=== PATIENT | male | born 1985 | race Caucasian/White ===

== ENCOUNTER 2020-03-24 10:05 | Emergency (ER) | payer OTHER, SELFPAY ==
[2020-03-24 10:12] VITALS: BP 119/72; PULSE 76; RESP 14; TEMP 36.8; O2SAT 98
--- NOTE | 2020-03-24 10:20 | ED.EYEPROB ---
HPI - Eye Problem General Chief complaint: Eye Problems Stated complaint: left eye swollen/red/blurred vision Time Seen by Provider: 03/24/20 10:20 Source: patient and RN notes reviewed Mode of arrival: ambulatory Limitations: no limitations History of Present Illness HPI Narrative: 34 year old male who presents to [facility] care with complaints of left eye feeling irritated, dry, soreness to lateral corner of his left eye since yesterday evening. Patient states that he was in the [place] yesterday [place] and is not sure if he got something in his eye or if he got exposed to something in the wood. Patient states that he has some blurring of his vision at times denies any acute pain. Patient states that his left upper eyelid is swollen and red, denies excessive tearing, states did have some drainage from his eye this morning. MD chief complaint: eye pain and vision change Onset (ago): day(s) (1) Onset description: sudden Duration: progressively worsening Location: left eye Eye Symptoms: burning, redness, itching, discharge (whitish) and blurry vision (at times) Place: street/outdoors Severity: mild Severity scale (1-10): 3 If Pain, Quality: aching Context: other (unsure mechanism) Associated symptoms: none Treatments Prior to Arrival: none Related Data Allergies Allergy/AdvReac Type Severity Reaction Status Date / Time No Known Allergies Allergy Mild Verified 03/24/20 10:21 Review of Systems Review of Systems: Narrative: CONSTITUTIONAL: Denies fever, chills, or sweats. EYES: Positive for some blurring of vision, redness, or discharge from left eye. ENT: Denies rhinorrhea, congestion, sore throat, or otalgia. CARDIOVASCULAR: Denies chest pain, palpitations, or edema. RESPIRATORY: Denies cough or dyspnea. GASTROINTESTINAL: Denies abdominal pain, nausea, vomiting, or diarrhea. GENITOURINARY: Denies dysuria or hematuria. SKIN: Denies rash or itching. MUSCULOSKELETAL: Denies back pain, joint pain, or myalgia. NEUROLOGIC: Denies headache, numbness, or weakness. PSYCHIATRIC: Denies anxiety or depression. All systems reviewed & are unremarkable except as noted in HPI and below PMFSH Past Medical History Medical History (Updated 03/25/20 @ 08:51 by Genny Lowery NP) Concussion Pneumonia Surgical History Surgical History (Updated 03/25/20 @ 10:01 by Genny Lowery NP) No significant past surgical history Social History Social History (Updated 03/25/20 @ 09:55 by Genny Lowery NP) Smoking status: Former smoker Tobacco type: smokeless tobacco Living arrangements: with family Gender identity (if verbalized by the patient): Male Comments At time of signature, agree with nursing past medical, surgical, social history. There is no relevant family history pertinent to the presenting complaint Exam Narrative: Exam Narrative: GENERAL: Well-appearing, well-nourished, and in no acute distress. HEAD: Normocephalic, atraumatic. EYES: PERRLA and EOMI,left eye sclera reddened with some swelling to left upper eyelid, no excessive tearing noted, denies sharp pain. No drainage noted but stated matting this morning noted, no nystagmus noted on examination or visual foreign body. ENT: Nares clear, no rhinorrhea or epistaxis. Mucous membranes moist. NECK: Supple.no lymphadenopathy CHEST: Clear to auscultation. No respiratory distress.SAO2 98% on room air. HEART: Regular rate and rhythm. No murmur heard. Normal peripheral pulses. ABDOMEN: Soft, nontender, nondistended, normal active bowel sounds. EXTREMITIES: Normal range of motion. No edema. SKIN: Warm, dry, no rash. NEURO: No focal deficits. Alert and oriented x3. Course Vital Signs Vital signs: Vital Signs Temperature 36.8 C 03/24/20 10:12 Pulse Rate 76 03/24/20 10:12 Respiratory Rate 14 03/24/20 10:12 Blood Pressure 119/72 03/24/20 10:12 Pulse Oximetry 98 03/24/20 10:12 Temperature 36.8 C 03/24/20 10:12 Pulse Rate 76 03/24/20 10:12 Res
== END 2020-03-24 11:02 | disposition home or self-care (01) ==
PROVIDERS: Emergency Provider Registered Nurse; PCP Physician Assistant
DX: S05.02XA Injury of conjunctiva and corneal abrasion without foreign body, left eye, initial encounter (principal); X58.XXXA Exposure to other specified factors, initial encounter
CPT/HCPCS: 99213; A9270; G0463

== ENCOUNTER 2020-08-10 14:38 | Emergency (ER) | payer OTHER, SELFPAY ==
[2020-08-10 14:59] VITALS: BP 133/88; PULSE 82; RESP 16; TEMP 36.7; O2SAT 97
[2020-08-10 15:25] LABS: Basophils Absolute Auto 0.04 K/mm3 (0.00-0.10); Basophils Percent Auto 0.5 % (0.0-1.0); Eosinophils Absolute Auto 0.07 K/mm3 (0.02-0.50); Eosinophils Percent Auto 0.9 % (1.0-6.0); Hematocrit 44.4 % (40.0-54.0); Hemoglobin 15.7 g/dL (14.0-18.0); Immature Granulocyte Absolute 0.06 K/mm3 (0.00-0.00); Immature Granulocyte Percent A 0.8 % (0.0-0.0); Lymphocytes Absolute Auto 0.93 K/mm3 (1.10-4.50); Mean Corpuscular HGB Conc 35.4 g/dL (32.0-36.0); Mean Corpuscular Hemoglobin 29.3 pg (27.0-31.0); Mean Corpuscular Volume 82.8 fL (78.0-102.0); Mean Platelet Volume 10.7 fl (8.7-11.0); Monocytes Absolute Auto 0.48 K/mm3 (0.10-0.90); Monocytes Percent Auto 6.2 % (2.0-11.0); Neutrophils Absolute Auto 6.2 K/mm3 (1.7-7.2); Neutrophils Percent Auto 79.6 % (50.0-70.0); Platelet Count Result 201 K/mm3 (150-420); Red Blood Count 5.36 M/mm3 (4.70-6.10); Red Cell Distribution Width 12.5 % (11.6-14.4); White Blood Count 7.7 K/mm3 (4.8-10.8)
[2020-08-10] MEDS: ONDANSETRON HCL ODT 4 MG TABLET PO (15:25)
[2020-08-10 15:43] LABS: SARS-CoV-2 Ag Negative (Negative)
--- NOTE | 2020-08-10 15:46 | ED.GENADULT ---
HPI - General Adult General Chief complaint: Dental/Oral Stated complaint: sent by doctor for infection/nausea/sore throat History of Present Illness HPI narrative: this is a 35-year-old gentleman that presents to the emergency department after he spoke with his PA earlier today and was advised to present to the emergency room because of sore throat and cough and has been feeling some weakness with no shortness of breath no fever chills no chest pain no abdominal pain, has been having some nausea and no diarrhea or constipation. The patient recently was treated for sinus infection by his PA, and also has seen his dentist and had a tooth extraction for which she was placed on pain medication. Called his PA earlier today and was advised to present to the ER to have workup that included making sure he did have an overt infection. Onset (ago): day(s) Location: mouth Radiation: non-radiation Severity: moderate Severity scale (1-10): 6 Quality: aching Pain Consistency: intermittent Relieving factors: none Exacerbating factors: none Associated symptoms: nausea/vomiting and weakness Related Data Home Medications Medication Instructions Recorded Confirmed amoxicillin 500 mg PO Q6H 08/10/20 08/10/20 cephalexin 500 mg PO Q8H 08/10/20 08/10/20 hydrocodone-acetaminophen 1 tablet PO Q4-6H PRN 08/10/20 08/10/20 Allergies Allergy/AdvReac Type Severity Reaction Status Date / Time No Known Allergies Allergy Mild Verified 03/24/20 10:21 Review of Systems Review of Systems: All systems reviewed & are unremarkable except as noted in HPI and below PMFSH Past Medical History Medical History Concussion Pneumonia Surgical History Surgical History No significant past surgical history Social History Social History Smoking status: Former smoker Tobacco type: smokeless tobacco Gender identity (if verbalized by the patient): Male Exam Const: General: no acute distress and alert Orientation/consciousness: patient oriented x3 HENMT: Head: normal to inspection Other: Oropharynx with erythema Eyes: Conjunctivae: conjunctivae normal Pupils: Equal, round and reactive pupils present Neck: Neck: normal visual inspection Chest: Chest palpation & inspection: normal inspection of the chest Resp: Effort & Inspection: normal respiratory effort Auscultation: clear to auscultation bilaterally Cardio: Rate: regular rate Rhythm: regular rhythm GI: GI Palp: Yes Soft to palpation Back/Spine/Pelvis: Back: no CVA tenderness Skin: General skin exam: normal color Rashes: no rashes Neuro: General: patient oriented x3, moves all extremities, no meningeal signs and no focal motor deficits Extrem: General: normal to inspection Psych: Appearance: grossly normal Mental Status: mental status grossly normal Affect: normal affect Course Course Emergency Course: patient doing well was given p.o. Zofran and reviewed the results with patient. Vital Signs Vital signs: Vital Signs Temperature 36.7 C 08/10/20 14:59 Pulse Rate 82 08/10/20 14:59 Respiratory Rate 16 08/10/20 14:59 Blood Pressure 133/88 08/10/20 14:59 Pulse Oximetry 97 08/10/20 14:59 Temperature 36.7 C 08/10/20 14:59 Pulse Rate 82 08/10/20 14:59 Respiratory Rate 16 08/10/20 14:59 Blood Pressure 133/88 08/10/20 14:59 Pulse Oximetry 97 08/10/20 14:59 Medical Decision Making Vital Signs Vital Signs: Vital Signs Temperature 36.7 C 08/10/20 14:59 Pulse Rate 82 08/10/20 14:59 Respiratory Rate 16 08/10/20 14:59 Blood Pressure 133/88 08/10/20 14:59 Pulse Oximetry 97 08/10/20 14:59 Temperature 36.7 C 08/10/20 14:59 Pulse Rate 82 08/10/20 14:59 Respiratory Rate 16 08/10/20 14:59 Blood Pressure 133/88 08/10/20 14:59 Pulse Oximetry 97
== END 2020-08-10 15:55 | disposition home or self-care (01) ==
PROVIDERS: Emergency Provider Emergency Medicine; PCP Physician Assistant
DX: B34.9 Viral infection, unspecified (principal); R11.0 Nausea; Z20.822 Contact with and (suspected) exposure to COVID-19
CPT/HCPCS: 85025; 87040; 87081; 87426; 87880; 99283; A9270; C9803

== ENCOUNTER 2020-10-30 15:46 | Outpatient (CLI) | payer OTHER, SELFPAY ==
[2020-10-30 16:34] LABS: SARS-CoV-2 RNA PCR Positive (Negative)
== END 2020-10-30 15:47 | disposition home or self-care (01) ==
LOC: CHSLAB 15:47
PROVIDERS: PCP Physician Assistant; Visit Provider Physician Assistant
DX: U07.1 COVID-19 (principal)
CPT/HCPCS: C9803; U0003; U0005

== ENCOUNTER 2021-06-29 09:31 | Emergency (ER) | payer OTHER, SELFPAY ==
--- NOTE | ~2021-06-29 | XR_ITS ---
EXAMINATION: XR chest 1V portable DATE: 06/29/2021 10:01 INDICATION: Midsternal and left-sided chest pain with bilateral arm tingling. TECHNIQUE: frontal view of the chest was obtained. COMPARISON: Chest radiograph dated 02/15/2011 FINDINGS: The lungs are clear with no focal airspace opacities, pulmonary edema, pleural effusion or pneumothor ax. The cardiomediastinal silhouette is normal. Mild thoracic dextrocurvature. IMPRESSION: 1. No acute cardiopulmonary disease. Reviewed, dictated and finalized at location [facility]. [facility]
--- NOTE | 2021-06-29 09:45 | ECG_ITS ---
Measurements Intervals [place] Rate: 60 P: 58 [place]: 134 QRS: 13 QRSD: 104 T: -30 QT: 383 QTc: 385 Interpretive Statements SINUS RHYTHM BORDERLINE R WAVE PROGRESSION, ANTERIOR LEADS ST-T WAVE ABNORMALITY IN INFERIOR LEADS- CONSIDER ISCHEMIA BASELINE ARTIFACT- V4-V6 ABNORMAL ECG Electronically Signed On 06-29-2021 10:19:28 VIDEO PRESENTATION OPERATOR by Navjot Kessler D.O.
[2021-06-29 09:46] VITALS: BP 116/79; PULSE 71; RESP 16; TEMP 36.2; O2SAT 98
[2021-06-29 09:49] VITALS: PULSE 71
[2021-06-29 10:24] LABS: Basophils Absolute Auto 0.04 K/mm3 (0.00-0.10); Basophils Percent Auto 0.7 % (0.0-1.0); Eosinophils Absolute Auto 0.09 K/mm3 (0.02-0.50); Eosinophils Percent Auto 1.6 % (1.0-6.0); Hematocrit 49.5 % (40.0-54.0); Hemoglobin 17.3 g/dL (14.0-18.0); Immature Granulocyte Absolute 0.04 K/mm3 (0.00-0.00); Immature Granulocyte Percent A 0.7 % (0.0-0.0); Lymphocytes Absolute Auto 1.24 K/mm3 (1.10-4.50); Lymphocytes Percent Auto 21.5 % (18.0-42.0); Mean Corpuscular HGB Conc 34.9 g/dL (32.0-36.0); Mean Corpuscular Hemoglobin 29.1 pg (27.0-31.0); Mean Corpuscular Volume 83.2 fL (78.0-102.0); Mean Platelet Volume 11.2 fl (8.7-11.0); Monocytes Absolute Auto 0.46 K/mm3 (0.10-0.90); Neutrophils Absolute Auto 3.9 K/mm3 (1.7-7.2); Neutrophils Percent Auto 67.5 % (50.0-70.0); Platelet Count Result 240 K/mm3 (150-420); Red Blood Count 5.95 M/mm3 (4.70-6.10); Red Cell Distribution Width 12.3 % (11.6-14.4); White Blood Count 5.8 K/mm3 (4.8-10.8)
[2021-06-29 10:36] LABS: D Dimer 0.19 mg/L (0.19-0.50)
[2021-06-29 10:41] LABS: Alanine Aminotransferase 50 U/L (16-63); Alkaline Phosphatase 69 U/L (46-116); Anion Gap 10 mmol/L (8-16); Aspartate Amino Transferase 18 U/L (15-37); Bilirubin,Total 1.9 mg/dL (0.00-1.00); Blood Urea Nitrogen 14 mg/dL (7-18); Carbon Dioxide 27 mmol/L (21-32); Chloride 103 mmol/L (98-108); Estimated CRCL calculation 89 ml/min; Estimated Glomerular Filt Rate > 60; Glucose 117 mg/dL (70-99); Osmolality Calculated 291 mOsm/kg (285-295); Potassium 4.2 mmol/L (3.5-5.1); Sodium 140 mmol/L (136-145); Total Protein 7.4 g/dL (6.4-8.2)
[2021-06-29 10:44] LABS: SARS-CoV-2 Ag Negative (Negative)
--- NOTE | 2021-06-29 11:00 | ED.CHESTPAIN ---
HPI - Chest Pain General Chief Complaint: Chest Pain Stated Complaint: dizzy, left arm asleep Source: patient Mode of arrival: ambulatory Limitations: no limitations History of Present Illness HPI narrative: Pt presents with3 day hx of chest pain. He said it feels like his indigestion. He has also had an ache in his left arm. Today pt was getting up and noted he felt dizzy and thought he was going to vomit. MD complaint: chest discomfort Onset (ago): day(s) Timing of current episode: constant Onset: during rest Pain location: substernal Pain radiation: left arm Severity: mild Quality: tightness and heaviness Relieving factors: nothing Exacerbating factors: nothing Associated symptoms: nausea Treatment prior to arrival: none Risk Factors Coronary artery disease risk factors: none Thoracic aortic dissection risk factors: none Related Data Home Medications Medication Instructions Recorded Confirmed cephalexin 500 mg PO DAILY 06/29/21 06/29/21 omeprazole 20 mg PO DAILY 06/29/21 06/29/21 Allergies Allergy/AdvReac Type Severity Reaction Status Date / Time No Known Allergies Allergy Mild Verified 06/29/21 09:57 Review of Systems Constitutional: Constitutional: Reports no additional constitutional complaints Eyes: Eyes: Reports no additional eye complaints ENT: Reports sore throat (scratchy throat) Cardiovascular: Cardiovascular: Reports chest pain (more of a tightness like his indigestion) Respiratory: Respiratory: Reports no additional respiratory complaints Gastrointestinal: Gastrointestinal: Denies abdominal pain, Denies bloating, Denies constipation, Reports heartburn, Denies diarrhea, Reports nausea (this am after he got dizzy) and Denies vomiting Genitourinary: Genitourinary: Reports no additional male genitourinary complaints Musculoskeletal: Musculoskeletal: Reports no additional musculoskeletal complaints Integumentary/Breasts: Skin/Breast: Reports system reviewed and no additional complaints, except as docu Neurologic: Denies confusion, Denies vertigo, Reports dizziness, Denies syncope, Denies headache(s), Denies focal weakness, Denies numbness and Denies weakness Psychiatric: Psychiatric: Reports no additional psychiatric complaints Hematologic/Lymphatic: Hematologic/Lymphatic: Reports no additional hematologic/lymphatic complaints PMFSH Past Medical History Medical History Concussion Pneumonia Surgical History Surgical History No significant past surgical history Social History Social History Smoking status: Former smoker Tobacco type: smokeless tobacco Gender identity (if verbalized by the patient): Male Exam Const: General: healthy appearing, no acute distress and alert Nutritional Appearance: well nourished Orientation/consciousness: patient oriented x3 HENMT: Head: normal to inspection Eyes: Conjunctivae: conjunctivae normal Pupils: Equal, round and reactive pupils present Neck: Neck: normal visual inspection Chest: Chest palpation & inspection: normal inspection of the chest Resp: Effort & Inspection: normal respiratory effort Auscultation: clear to auscultation bilaterally Cardio: Rate: regular rate Rhythm: regular rhythm GI: GI Palp: Yes Soft to palpation, No Tenderness to palpation present (GI), No Guarding due to palpation present (GI) and No Palpable mass present Auscultation: normal bowel sounds Back/Spine/Pelvis: Back: no CVA tenderness Skin: General skin exam: normal color Rashes: no rashes Neuro: General: patient oriented x3 and moves all extremities Extrem: General: normal to inspection, no pedal edema and no edema Psych: Appearance: grossly normal Mental Status: mental status grossly normal Thought content: Yes Normal thought content present Course Course [facility]
[2021-06-29 11:09] VITALS: BP 105/64
[2021-06-29 11:10] VITALS: BP 101/64; BP 113/74
[2021-06-29 14:36] LABS: Troponin I 6.1 ng/L (0.00-60.4)
[2021-06-29 15:12] VITALS: BP 122/86; PULSE 62; RESP 16; TEMP 36.3; O2SAT 97
== END 2021-06-29 15:13 | disposition home or self-care (01) ==
PROVIDERS: Emergency Provider Emergency Medicine; PCP Physician Assistant
DX: R07.89 Other chest pain (principal); Z20.822 Contact with and (suspected) exposure to COVID-19
CPT/HCPCS: 36415; 71045; 80053; 84484; 85025; 85380; 87426; 93005; 99283; 99284; C9803

== ENCOUNTER 2022-07-17 11:40 | Emergency (ER) | payer OTHER, SELFPAY ==
--- NOTE | ~2022-07-17 | XR_ITS ---
Clinical Indication: Cough PA and lateral views of the chest: Comparison: 06/29/2021 Findings: The lungs are clear, without evidence of focal consolidation or pleural effusion. Cardiome diastinal silhouette is within normal limits. Bones and soft tissues are unremarkable. Impression: Normal chest. Reviewed, dictated and finalized at location . NDED FUNCTION DENTAL ASSISTANT Impression: Normal chest.
[2022-07-17 11:46] VITALS: BP 145/68; PULSE 85; RESP 20; TEMP 36.9; O2SAT 100
--- NOTE | 2022-07-17 12:14 | ED.URI ---
HPI - URI/Sore Throat General Chief Complaint: Upper Respiratory Infection Stated Complaint: Chest Congestion/Cough Time Seen by Provider: 07/17/22 12:00 Source: patient and RN notes reviewed History of Present Illness HPI Narrative: Patient is a 37-year-old male who presents to the Urgent Care with complaints of persistent productive cough for 1 week. Patient states he was sick 2 weeks ago and placed on Augmentin for strep throat. Patient states as of 2 days ago he was placed on amoxicillin by his primary care doctor. Patient is reporting chest congestion and cough without fever, shortness of breath, nausea or vomiting. Patient states his main concern is possible pneumonia which he had a couple years ago. No other acute complaints. No acute distress noted. Patient aware of plan of care. Some parts of this dictation were generated by voice recognition software and may contain typographical and/or grammatical inaccuracies. Related Data Home Medications Medication Instructions Recorded Confirmed amoxicillin 875 mg tablet See Rx Instructions .Route .COMPLEX 07/17/22 07/17/22 Allergies Allergy/AdvReac Type Severity Reaction Status Date / Time No Known Allergies Allergy Mild Verified 07/17/22 11:46 Review of Systems Review of Systems: CONSTITUTIONAL: Denies fever, chills, or sweats. EYES: Denies visual changes, redness, or discharge. ENT: Denies rhinorrhea, congestion, sore throat, or otalgia. CARDIOVASCULAR: Denies chest pain, palpitations, or edema. RESPIRATORY: Reports a productive cough with chest congestion, without dyspnea GASTROINTESTINAL: Denies abdominal pain, nausea, vomiting, or diarrhea. GENITOURINARY: Denies dysuria or hematuria. SKIN: Denies rash or itching. MUSCULOSKELETAL: Denies back pain, joint pain, or myalgia. NEUROLOGIC: Denies headache, numbness, or weakness. All other systems reviewed are negative, except as documented in HPI. [facility] Past Medical History Medical History Concussion Pneumonia Surgical History Surgical History No significant past surgical history Social History Social History Smoking status: Former smoker Tobacco type: smokeless tobacco Living arrangements: with family Gender identity (if verbalized by the patient): Male Comments At the time of my signature, I reviewed and agree with the nursing past medical, surgical, social, and family history. There is no relevant family history pertinent to the patient complaint. Exam Narrative: GENERAL: This is a well-nourished, well-developed patient, in no apparent distress. HEAD: normocephalic, atraumatic. EYES: PERRL. Sclera clear/white. Vision is grossly intact. EARS: External ears normal, auditory canals clear and without drainage, TMs normal without perforation. Hearing grossly intact. NOSE: External nose normal with no obvious nasal discharge, nares without redness, no rhinorrhea. THROAT: Mucous membranes moist, posterior pharynx clear. Moderate postnasal drainage NECK: Neck supple, CARDIOVASCULAR: Regular rate and rhythm RESPIRATORY: Clear to auscultation. Breath sounds equal bilaterally. No wheezes, rales, or rhonchi. SKIN: warm, intact with no suspicious lesions or rash, good texture and turgor. NEURO: awake, alert, and oriented to person, place and time. There were no obvious focal neurologic abnormalities. EXTREMITIES: No clubbing, cyanosis, or edema. Course Course Level of Care: Express Care Visit Vital Signs Vital signs: Vital Signs Temperature 98.4 F 07/17/22 11:46 Pulse Rate 85 07/17/22 11:46 Respiratory Rate 20 07/17/22 11:46 Blood Pressure 145/68 H 07/17/22 11:46 Pulse Oximetry 100 07/17/22 11:46 Oxygen Delivery Room Air 07/17/22 11:46 Temperature 98.4 F 07/17/22 11:46 Pulse Rate 85 07/17/22 11:46
== END 2022-07-17 13:00 | disposition home or self-care (01) ==
PROVIDERS: Emergency Provider Nurse Practitioner Family; PCP Physician Assistant
DX: J40 Bronchitis, not specified as acute or chronic (principal); Z87.891 Personal history of nicotine dependence
CPT/HCPCS: 71046; 99213; G0463

== ENCOUNTER 2023-12-28 14:27 | Emergency (ER) | payer OTHER, SELFPAY ==
[2023-12-28 14:33] VITALS: BP 128/83; PULSE 83; RESP 16; TEMP 36.8; O2SAT 98
--- NOTE | 2023-12-28 14:45 | ECG_ITS ---
Test Date: 2023-12-28 14:47:56 Measurements Intervals [place] Rate: 60 P: 62 [place]: 125 QRS: -23 QRSD: 96 T: -30 QT: 393 QTc: 393 Interpretive Statements SINUS RHYTHM T WAVE ABNORMALITY IN INFERIOR LEADS- CONSIDER ISCHEMIA BASELINE ARTIFACT- I, III ABNORMAL ECG No previous ECG available for comparison Electronically Signed On 12-28-2023 14:59:53 CDT by Navjot Kessler D.O.
--- NOTE | 2023-12-28 15:00 | ED.CHESTPAIN ---
HPI - Chest Pain General Chief Complaint: Chest Pain Stated Complaint: Chest Pain Time Seen by Provider: 12/28/23 14:33 Source: patient, RN notes reviewed and old records reviewed Mode of arrival: ambulatory Limitations: no limitations History of Present Illness HPI narrative: 38 year old male who presents to [facility] who states he awoke this morning with tightness over his left pectoral area which has continued throughout the day.Patient states that he has some inner left arm numbness no pain. Patient denies any nausea or vomiting or shortness of breath. Patient works as a [employer] denies any heavy lifting recently which could of caused any strain to chest area.Patient reports that he does not smoke, drinks occasional beer uses no illicit drugs. Patient reports that father has history of irregular heart beat. MD complaint: other (chest tightness) Pertinent past history: other (gerd) Onset (ago): hour(s) (this morning on awakening has contined all day) Onset: awoke with symptoms Pain location: left chest and other (reports some left inner arm numbness denies pain to left arm) Quality: tightness Treatment prior to arrival: none Related Data Home Medications Medication Instructions Recorded Confirmed sulfamethoxazole 800 tablet 12/28/23 mg-trimethoprim 160 mg tablet Allergies Allergy/AdvReac Type Severity Reaction Status Date / Time No Known Allergies Allergy Mild Verified 12/28/23 14:32 Review of Systems Review of Systems: CONSTITUTIONAL: Denies fever, chills, or sweats. EYES: Denies visual changes, redness, or discharge. ENT: Denies rhinorrhea, congestion, sore throat, or otalgia. CARDIOVASCULAR: Reports chest tightness,no palpitations, no edema. RESPIRATORY: Denies cough or dyspnea. GASTROINTESTINAL: Denies abdominal pain, nausea, vomiting, or diarrhea. GENITOURINARY: Denies dysuria or hematuria. SKIN: Denies rash or itching. MUSCULOSKELETAL: Denies back pain, joint pain, or myalgia. NEUROLOGIC: Denies headache, numbness, or weakness. PSYCHIATRIC: Denies anxiety or depression. All systems reviewed & are unremarkable except as noted in HPI and below PMFSH Past Medical History Medical History Concussion Pneumonia Surgical History Surgical History No significant past surgical history Social History Social History Smoking status: Former smoker Tobacco type: smokeless tobacco Alcohol intake: current Alcohol use details: social Substance use type: does not use Living arrangements: with family Gender identity (if verbalized by the patient): Male Comments At time of signature, agree with nursing past medical, surgical, social and family history. There is no relevant family history pertinent to the presenting complaint Exam Narrative: GENERAL: Well-appearing, well-nourished, and in no acute distress. HEAD: Normocephalic, atraumatic. EYES: PERRLA and EOMI. ENT: Nares clear, no rhinorrhea or epistaxis. Mucous membranes moist. NECK: Supple. no lymphadenopathy CHEST: Clear to auscultation. No respiratory distress.SO2 98% on room air HEART: Regular rate and rhythm. No murmur heard. Normal peripheral pulse with no edema..Reports with tightness to pectoral area of chest since awakening this morning, denies any increase with activity or any diaphoresis, nausea or any vomiting. ABDOMEN: Soft, nontender, nondistended, normal active bowel sounds. EXTREMITIES: Normal range of motion. No edema. SKIN: Warm, dry, no rash. NEURO: No focal deficits. Alert and oriented x3. Course Course Emergency Course: Patient is aware of diagnosis, understands and agrees to treatment plan.? Anticipatory guidance given.? Patient agrees to follow-up as directed and is aware of reasons to seek care at the emergency department. Po
== END 2023-12-28 15:15 | disposition short-term general hospital (02) ==
PROVIDERS: Emergency Provider Registered Nurse; PCP Physician Assistant
DX: R07.89 Other chest pain (principal); R94.31 Abnormal electrocardiogram [ECG] [EKG]
CPT/HCPCS: 93005; 99213; G0463

== ENCOUNTER 2023-12-28 16:01 | Emergency (ER) | payer OTHER, SELFPAY ==
--- NOTE | ~2023-12-28 | XR_ITS ---
EXAMINATION: XR chest 2V Exam Date/Time: 12/28/2023 16:50 CDT HISTORY: cp Comparison: 07/17/2022. RESULT: Lines, tubes, and devices: None. Lungs and pleura: Clear. Cardiomediastinal silhouette: Stable. Other: No acute osseous or upper abdominal finding. IMPRESSION: No acute cardiopulmonary process. Reviewed, dictated and finalized at location K.
--- NOTE | 2023-12-28 16:18 | ECG_ITS ---
Test Date: 2023-12-28 16:28:13 Measurements Intervals [place] Rate: 62 P: 39 GA: 139 QRS: -32 QRSD: 106 T: -29 QT: 390 QTc: 397 Interpretive Statements SINUS RHYTHM WITH SINUS ARRHYTHMIA LEFT AXIS DEVIATION BORDERLINE R WAVE PROGRESSION, ANTERIOR LEADS MINIMAL Q WAVES- HIGH LATERAL LEADS ST-T WAVE ABNORMALITY IN INFERIOR LEADS- CONSIDER ISCHEMIA ABNORMAL ECG Compared to ECG 12/28/2023 14:47:56 NO SIGNIFICANT CHANGE Electronically Signed On 12-28-2023 20:43:39 CDT by Navjot Kessler D.O.
[2023-12-28 16:25] VITALS: BP 122/87; PULSE 66; RESP 16; TEMP 36.7; O2SAT 98
[2023-12-28 16:31] VITALS: PULSE 62; O2SAT 98
[2023-12-28 16:44] LABS: Basophils Percent Auto 0.5 % (0.2-1.2); Eosinophils Absolute Auto 0.2 K/mm3 (0-0.3); Hematocrit 47.6 % (42.0-52.0); Hemoglobin 16.8 g/dL (14.0-18.0); Immature Granulocyte Absolute 0.04 K/mm3 (0.00-0.031); Immature Granulocyte Percent A 0.5 % (0-0.5); Lymphocytes Absolute Auto 1.58 K/mm3 (0.9-3.2); Lymphocytes Percent Auto 20.8 % (18.3-44.2); Mean Corpuscular HGB Conc 35.3 g/dl (32-36); Mean Corpuscular Hemoglobin 28.8 pg (26-34); Mean Corpuscular Volume 81.5 fl (80-100); Monocytes Absolute Auto 0.5 K/mm3 (0.1-0.6); Monocytes Percent Auto 6.3 % (2.6-8.5); Neutrophils Absolute Auto 5.3 K/mm3 (1.3-6.7); Neutrophils Percent Auto 69.9 % (45.5-73.1); Platelet Count Result 232 k/mm3 (150-375); Red Blood Count 5.84 M/mm3 (4.6-6.20); Red Cell Distribution Width 13.3 % (11.5-14.5); White Blood Count 7.6 K/mm3 (4.5-10.0)
--- NOTE | 2023-12-28 16:53 | ED.GENADULT ---
HPI - General Adult General Chief complaint: Chest Pain Stated complaint: cp Time Seen by Provider: 12/28/23 16:19 History of Present Illness HPI narrative: Patient is a 38-year-old gentleman who presents emergency department with chief complaint of chest pain. The patient reports that throughout the day he has been having a pressure sensation in his chest the patient states he woke up with the symptoms patient reports he has no prior history of hypertension no prior cardiac disease reports that his father had AFib when he was younger but denies any history of family heart attack both him or his brother's or father. The patient denies smoking reports that he does not use any illicit drugs Related Data Home Medications Medication Instructions Recorded Confirmed sulfamethoxazole 800 tablet 12/28/23 mg-trimethoprim 160 mg tablet Allergies Allergy/AdvReac Type Severity Reaction Status Date / Time No Known Allergies Allergy Mild Verified 12/28/23 14:32 Review of Systems Review of Systems: A 10 system review of systems was completed on the patient and is negative except for what is stated in the HPI. Nursing and ancillary documentation was reviewed. PMFSH Past Medical History Medical History Concussion Pneumonia Surgical History Surgical History No significant past surgical history Social History Social History Smoking status: Former smoker Tobacco type: smokeless tobacco Alcohol intake: current Alcohol use details: social Substance use type: does not use Living arrangements: with family Gender identity (if verbalized by the patient): Male Exam Narrative: GENERAL: Well-appearing, well-nourished, and in no acute distress. HEAD: Normocephalic, atraumatic. EYES: PERRLA and EOMI. ENT: Nares clear, no rhinorrhea or epistaxis. Mucous membranes moist. NECK: Supple. CHEST: Clear to auscultation. No respiratory distress. HEART: Regular rate and rhythm. No murmur heard. Normal peripheral pulses. ABDOMEN: Soft, nontender, nondistended, normal active bowel sounds. EXTREMITIES: Normal range of motion. No edema. SKIN: Warm, dry, no rash. NEURO: No focal deficits. Alert and oriented x3. PSYCH: Normal mood and affect. Course Vital Signs Vital signs: Vital Signs Temperature 36.7 C 12/28/23 16:25 Pulse Rate 66 12/28/23 16:25 Respiratory Rate 16 12/28/23 16:25 Blood Pressure 122/87 12/28/23 16:25 Pulse Oximetry 98 12/28/23 16:25 Oxygen Delivery Room Air 12/28/23 16:25 Temperature 36.7 C 12/28/23 16:25 Pulse Rate 62 12/28/23 18:03 Respiratory Rate 17 12/28/23 18:03 Blood Pressure 119/65 12/28/23 18:03 Pulse Oximetry 97 12/28/23 18:03 Oxygen Delivery Room Air 12/28/23 16:31 Medical Decision Making MDM Narrative Medical decision making narrative: Differential diagnosis includes ACS, dysrhythmia, electrolyte abnormality, gastroesophageal reflux disease, esophageal spasm, Laboratory studies were obtained on showed normal CBC CMP was within normal limits liver enzymes showed a bilirubin of 2.0 the patient previously approximately 2 years ago had a bilirubin of 1.9 EKG showed no acute ischemic changes Repeat troponin was negative Vital Signs Vital Signs: Vital Signs Temperature 36.7 C 12/28/23 16:25 Pulse Rate 66 12/28/23 16:25 Respiratory Rate 16 12/28/23 16:25 Blood Pressure 122/87 12/28/23 16:25 Pulse Oximetry 98 12/28/23 16:25 Oxygen Delivery Room Air 12/28/23 16:25 Temperature 36.7 C 12/28/23 16:25 Pulse Rate 62 12/28/23 18:03 Respiratory Rate 17 12/28/23 18:03 Blood Pressure 119/65 12/28/23 18:03 Pulse Oximetry 97 12/28/23 18:03 Oxygen Delivery Room Air 12/28/23 16:31 Lab Data 12/27
[2023-12-28 16:54] LABS: Alanine Aminotransferase 57 U/L (6-50); Albumin Level 4.8 g/dL (3.5-5.1); Alkaline Phosphatase 62 U/L (38-126); Anion Gap 10 mmol/L (4-12); Aspartate Amino Transferase 30 U/L (17-59); Blood Urea Nitrogen 13 mg/dL (9-20); Calcium 9.4 mg/dL (8.4-10.2); Carbon Dioxide 26 mmol/L (22-30); Chloride 103 mmol/L (98-107); Estimated CRCL calculation 94 ml/min; Estimated Glomerular Filt Rate > 60; Glucose 100 mg/dL (65-110); Lipase 110 U/L (23-300); Potassium 4.1 mmol/L (3.4-5.0); Sodium 139 mmol/L (137-145)
[2023-12-28 16:56] LABS: Prothrombin Time 13.7 Seconds (11.1-14.7)
[2023-12-28 16:57] LABS: Partial Thromboplastin Time 29.6 Seconds (22.3-36.8)
[2023-12-28 17:05] LABS: Troponin I < 0.012 ng/mL (0.000-0.034)
[2023-12-28] MEDS: ASPIRIN 81 MG CHEWABLE TABLET 324 MG PO (17:07)
[2023-12-28 18:03] VITALS: BP 119/65; PULSE 62; RESP 17; O2SAT 97
--- NOTE | 2023-12-28 19:10 | ECG_ITS ---
Test Date: 2023-12-28 19:17:36 Measurements Intervals [place] Rate: 55 P: 36 [place]: 135 QRS: -28 QRSD: 105 T: -29 QT: 399 QTc: 383 Interpretive Statements SINUS BRADYCARDIA DELAYED PRECORDIAL R/S TRANSITION MINIMAL Q WAVES- HIGH LATERAL LEADS ST-T WAVE ABNORMALITY IN INFERIOR LEADS- CONSIDER ISCHEMIA BASELINE WANDER- V3 ABNORMAL ECG Compared to ECG 12/28/2023 16:28:13 NO SIGNIFICANT CHANGE Electronically Signed On 12-28-2023 20:45:27 CDT by Navjot Kessler D.O.
[2023-12-28] MEDS: BELLADONNA ALK/PHENOB ELIX 10 ML, MAG HYDROX/ALUMINUM HYD/SIMETH 30 ML, LIDOCAINE HCL 2... PO (19:23)
--- NOTE | 2023-12-28 19:30 | PC.NURSE ---
Report received from CATRINA Cardenas. Assumed care of patient at this time.
[2023-12-28 19:44] LABS: Troponin I < 0.012 ng/mL (0.000-0.034)
[2023-12-28 20:00] VITALS: BP 118/91; PULSE 63; RESP 20; O2SAT 97
== END 2023-12-28 20:06 | disposition home or self-care (01) ==
PROVIDERS: Emergency Medicine; Emergency Provider Emergency Medicine; PCP Physician Assistant
DX: R07.89 Other chest pain (principal); Z87.01 Personal history of pneumonia (recurrent); Z87.891 Personal history of nicotine dependence; R00.1 Bradycardia, unspecified; R94.31 Abnormal electrocardiogram [ECG] [EKG]
CPT/HCPCS: 36415; 71046; 80053; 83690; 84484; 85025; 85610; 85730; 93005; 99284; A9270